=== PATIENT | male | born 1945 | race Caucasian/White ===

== ENCOUNTER 2017-01-29 16:00 | Emergency (ER) | payer OTHER ==
[~2017-01-29] VITALS: Ht 180.3 cm; Wt 113.4 kg
[~2017-01-29 16:00] MED LIST: ACYC400T PO; ATOR1TAB PO; CARV12.544 PO; CLOP75TA41 PO; ENTRESTO PO; FEXO-42 PO; GABA300C8 PO; GUAI600T23 PO; INSUINJ IJ; INSUINJ37 SUBCUT; OMEP20CA5 PO; POT20T PO; PREG150C PO; TAMS0.4C36 PO
[2017-01-29 17:16] LABS: Basophils # (auto) 0 uL; Basophils % (auto) 0.4 % (0.0-2.0); Eosinophils # (auto) 0.2 uL; Eosinophils % (auto) 2.7 % (0.0-7.0); Hematocrit 46.4 % (41.0-53.0); Lymphocytes % (auto) 28.4 % (10.0-50.0); Mean Corpuscular Hemoglobin 30.9 pg (28.0-32.0); Mean Corpuscular Hgb Conc. 32.3 g/dL (32.0-36.0); Mean Corpuscular Volume 95.5 fL (80.0-100.0); Mean Platelet Volume 9.6 fL (7.4-10.4); Monocytes # (auto) 0.4 uL; Monocytes % (auto) 5.2 % (0.0-12.0); Neutrophils # (auto) 4.6 uL; Neutrophils % (auto) 63.3 % (37.0-80.0); Platelet Count (auto) 179 10^3/uL (140-450); Red Cell Distribution Width 14.5 % (11.6-16.0); White Blood Cell 7.2 10^3/uL (4.4-10.8)
[2017-01-29 17:40] LABS: Albumin 3.2 g/dL (3.4-5.0); BUN/Creatinine Ratio 14.8; Bilirubin, Total 0.6 mg/dL (0.2-1.0); Calcium 8.6 mg/dL (8.5-10.1); Potassium 4.3 mmol/L (3.5-5.1); Total Protein 6.9 g/dL (6.4-8.2)
[2017-01-29 18:30] VITALS: BP 119/60
== END 2017-01-29 18:56 | disposition home or self-care (01) ==
LOC: ER 16:00 → EDBD 16:00 → ER 18:56
DX: R07.89 Other chest pain (principal); E66.01 Morbid (severe) obesity due to excess calories; Z68.34 Body mass index [BMI] 34.0-34.9, adult; I11.0 Hypertensive heart disease with heart failure; I50.9 Heart failure, unspecified; J44.9 Chronic obstructive pulmonary disease, unspecified; E11.9 Type 2 diabetes mellitus without complications; E78.5 Hyperlipidemia, unspecified; I25.2 Old myocardial infarction; Z86.73 Personal history of transient ischemic attack (TIA), and cerebral infarction without residual deficits; Z87.891 Personal history of nicotine dependence
CPT/HCPCS: 36415; 71020; 80053; 83735; 84484; 85025; 93005

== ENCOUNTER 2019-08-03 23:04 | Emergency (ER) | payer OTHER ==
[~2019-08-03] VITALS: Ht 188 cm; Wt 99.8 kg
[~2019-08-03 23:04] MED LIST changes: +ACYC-43 PO; -ACYC400T PO; +GABA300C10 PO; -GABA300C8 PO; -OMEP20CA5 PO; +OMEP20CA74 PO
[2019-08-03] MEDS ORDERED: ASPirin 81 mg TAB PO ONE (23:30)
[2019-08-03 23:41] LABS: Basophils # (auto) 0.1 uL; Basophils % (auto) 0.7 % (0.0-2.0); Eosinophils # (auto) 0.3 uL; Eosinophils % (auto) 3.5 % (0.0-7.0); Hematocrit 40.2 % (41.0-53.0); Hemoglobin 13.8 g/dL (13.5-17.5); Lymphocytes # (auto) 1.5 uL; Lymphocytes % (auto) 15.1 % (10.0-50.0); Mean Corpuscular Hemoglobin 32.6 pg (28.0-32.0); Mean Corpuscular Hgb Conc. 34.3 g/dL (32.0-36.0); Mean Corpuscular Volume 95.1 fL (80.0-100.0); Monocytes # (auto) 0.6 uL; Monocytes % (auto) 5.8 % (0.0-12.0); Neutrophils # (auto) 7.4 uL; Neutrophils % (auto) 74.9 % (37.0-80.0); Platelet Count (auto) 129 10^3/uL (140-450); Red Blood Cells 4.23 10^6/uL (4.5-5.90); Red Cell Distribution Width 14.4 % (11.8-14.3); White Blood Cell 9.9 10^3/uL (4.4-10.8)
[2019-08-03 23:56] LABS: INR 1.38 (0.9-1.15); Partial Thromboplastin Time 40.2 sec (23.64-32.05)
[2019-08-04 00:04] LABS: Albumin 3.1 g/dL (3.4-5.0); BUN/Creatinine Ratio 16.9; Calcium 8.3 mg/dL (8.5-10.1); Potassium 3.8 mmol/L (3.5-5.1)
[2019-08-04 00:09] LABS: Bilirubin, Total 0.6 mg/dL (0.2-1.0); Total Protein 6.6 g/dL (6.4-8.2)
[2019-08-04] MEDS ORDERED: ACETAMINOPHEN 325 MG TAB PO ONE (01:30)
[2019-08-04] MEDS ORDERED: ALUM & MAG HYDROX-SIMETH LIQ(MAALOX) 30 ML PO ONE (01:45)
[2019-08-04] MEDS ORDERED: IOHEXOL 350 MG/ML 100ML IJ ONE ×2 (02:02→03:29)
[2019-08-04 05:56] VITALS: BP 124/56
== END 2019-08-04 06:10 | disposition short-term general hospital (02) ==
LOC: EDBD 23:04 → ER 23:06
DX: R07.9 Chest pain, unspecified (principal); J39.8 Other specified diseases of upper respiratory tract; R79.1 Abnormal coagulation profile; I25.2 Old myocardial infarction; I11.0 Hypertensive heart disease with heart failure; I50.9 Heart failure, unspecified; J44.9 Chronic obstructive pulmonary disease, unspecified; E78.5 Hyperlipidemia, unspecified; Z95.0 Presence of cardiac pacemaker; Z87.891 Personal history of nicotine dependence; Z86.73 Personal history of transient ischemic attack (TIA), and cerebral infarction without residual deficits; Z88.0 Allergy status to penicillin; Z88.6 Allergy status to analgesic agent; Z91.040 Latex allergy status; Z88.8 Allergy status to other drugs, medicaments and biological substances; Z79.899 Other long term (current) drug therapy; Z79.4 Long term (current) use of insulin
CPT/HCPCS: 36415; 71045; 71275; 80053; 82962; 83880; 84484; 85025; 85379; 85610; 85730; 86677; 94761; 99285; Q9967

== ENCOUNTER 2019-10-21 15:02 | Emergency (ER) | payer OTHER ==
[~2019-10-21] VITALS: Ht 182.9 cm; Wt 106.6 kg
[2019-10-21] MEDS ORDERED: FUROSEMIDE 40 MG/4 ML VIAL IV ONE (15:15)
[2019-10-21 15:59] LABS: Basophils # (auto) 0.1 uL; Basophils % (auto) 1.2 % (0.0-2.0); Eosinophils # (auto) 0.3 uL; Eosinophils % (auto) 3.3 % (0.0-7.0); Hematocrit 39.8 % (41.0-53.0); Hemoglobin 13.6 g/dL (13.5-17.5); Lymphocytes # (auto) 1.9 uL; Mean Corpuscular Hemoglobin 32.7 pg (28.0-32.0); Mean Corpuscular Hgb Conc. 34.2 g/dL (32.0-36.0); Mean Corpuscular Volume 95.7 fL (80.0-100.0); Monocytes # (auto) 0.5 uL; Monocytes % (auto) 6.2 % (0.0-12.0); Neutrophils # (auto) 5.1 uL; Neutrophils % (auto) 65.3 % (37.0-80.0); Nucleated Red Blood Cells % 0.2 %; Platelet Count (auto) 130 10^3/uL (140-450); Red Blood Cells 4.16 10^6/uL (4.5-5.90); Red Cell Distribution Width 15.2 % (11.8-14.3); White Blood Cell 7.7 10^3/uL (4.4-10.8)
[2019-10-21 16:17] LABS: Albumin 3.3 g/dL (3.4-5.0); BUN/Creatinine Ratio 17.1; Calcium 9.1 mg/dL (8.5-10.1)
[2019-10-21 16:23] LABS: Bilirubin, Total 0.6 mg/dL (0.2-1.0)
[2019-10-21] MEDS ORDERED: ONDANSETRON HCL 4 MG/2 ML VIAL IV ONE (19:00)
[2019-10-21] MEDS ORDERED: MORPHINE SULF INJ 2 MG/ML SYRINGE 1ML IV ONE (19:00)
[2019-10-21] MEDS ORDERED: HYDROmorphone HCL 2 MG/ML VL IV ONE (19:15)
[2019-10-21 22:35] VITALS: BP 126/51
== END 2019-10-21 23:09 | disposition home or self-care (01) ==
LOC: EDBD 15:02 → ER 15:05
DX: I11.0 Hypertensive heart disease with heart failure (principal); I50.33 Acute on chronic diastolic (congestive) heart failure; R79.89 Other specified abnormal findings of blood chemistry; J44.9 Chronic obstructive pulmonary disease, unspecified; E11.9 Type 2 diabetes mellitus without complications; E78.5 Hyperlipidemia, unspecified; I25.2 Old myocardial infarction; F17.210 Nicotine dependence, cigarettes, uncomplicated
CPT/HCPCS: 36415; 71045; 80053; 82962; 83605; 83880; 84484; 85025; 87040; 93005; 96374; 96375; 99285; J1170; J1940; J2405

== ENCOUNTER 2019-12-09 12:23 | Inpatient (IN) | payer OTHER ==
[~2019-12-09] VITALS: Ht 182.9 cm; Wt 110.7 kg
[2019-12-09 12:59] LABS: Urine WBC None Seen /hpf (0 - 3)
[2019-12-09 13:10] LABS: Basophils # (auto) 0.1 uL; Basophils % (auto) 1.2 % (0.0-2.0); Eosinophils # (auto) 0.3 uL; Hematocrit 39.2 % (41.0-53.0); Hemoglobin 13.3 g/dL (13.5-17.5); Lymphocytes # (auto) 1.8 uL; Mean Corpuscular Hemoglobin 32.4 pg (28.0-32.0); Mean Corpuscular Hgb Conc. 33.9 g/dL (32.0-36.0); Mean Corpuscular Volume 95.4 fL (80.0-100.0); Monocytes # (auto) 0.3 uL; Monocytes % (auto) 4.8 % (0.0-12.0); Neutrophils # (auto) 4.5 uL; Platelet Count (auto) 147 10^3/uL (140-450); Red Blood Cells 4.11 10^6/uL (4.5-5.90); Red Cell Distribution Width 14.9 % (11.8-14.3)
[2019-12-09 13:12] LABS: Urine Bacteria NONE SEEN /hpf (None Seen); Urine Blood TRACE /uL (Negative); Urine Specific Gravity 1.012 (1.001-1.035)
[2019-12-09 13:32] LABS: Albumin 3.3 g/dL (3.4-5.0); Calcium 8.7 mg/dL (8.5-10.1); Potassium 4.3 mmol/L (3.5-5.1)
[2019-12-09 13:36] LABS: BUN/Creatinine Ratio 14.3; Bilirubin, Total 0.8 mg/dL (0.2-1.0); Total Protein 7.6 g/dL (6.4-8.2)
[2019-12-09] MEDS ORDERED: ONDANSETRON HCL 4 MG/2 ML VIAL IV ONE (15:45)
[2019-12-09] MEDS ORDERED: MEPERIDINE HCL (25 MG/ML) 1ML VIAL IV ONE ×2 (15:45→20:30)
[2019-12-09] MEDS ORDERED: SODIUM CHLORIDE 0.9% 500 ML IVB ONE (15:45)
[2019-12-09] MEDS ORDERED: PROMETHAZINE HCL 25 MG/ML 1ML IV ONE (20:30)
[2019-12-09] MEDS ORDERED: levoFLOXacin 500MG 100 ML IV ONE (22:30)
[2019-12-09] MEDS ORDERED: ASPirin-EC 81 mg tab PO ONE (22:30)
[2019-12-10] VITALS (7 sets, daily range): BP systolic 133–151; BP diastolic 62–86
[2019-12-10] MEDS ORDERED: ONDANSETRON HCL 4 MG/2 ML VIAL IV PRN
[2019-12-10] MEDS ORDERED: NITROGLYCERIN 0.4 MG SL TAB SL PRN ×2
[2019-12-10] MEDS ORDERED: DEXTROSE (50%) 50ML SYRG IV PRN (00:30)
[2019-12-10] MEDS: InsuLIN REG 1unit/0.01ml Soln (100units/ml) SC SCH ×4 (06:42→21:55)
[2019-12-10] MEDS: ACCU-CHEK COMFORT CURVE STRIP VI SCH ×4 (06:42→21:46)
[2019-12-10 09:08] LABS: Basophils # (auto) 0 10 ^3/uL (0-0.2); Basophils % (auto) 0.7 % (0.0-2.0); Eosinophils # (auto) 0.3 10 ^3/uL (0-0.8); Eosinophils % (auto) 4.7 % (0.0-7.0); Hematocrit 39.1 % (41.0-53.0); Hemoglobin 13.5 g/dL (13.5-17.5); Lymphocytes # (auto) 1.6 10 ^3/uL (0.4-5.4); Lymphocytes % (auto) 22.8 % (10.0-50.0); Mean Corpuscular Hemoglobin 32.6 pg (28.0-32.0); Mean Corpuscular Hgb Conc. 34.5 g/dL (32.0-36.0); Mean Corpuscular Volume 94.5 fL (80.0-100.0); Monocytes # (auto) 0.5 10 ^3/uL (0-1.3); Monocytes % (auto) 7.3 % (0.0-12.0); Neutrophils # (auto) 4.4 10 ^3/uL (1.6-8.6); Neutrophils % (auto) 64.5 % (37.0-80.0); Platelet Count (auto) 132 10^3/uL (140-450); Red Blood Cells 4.14 10^6/uL (4.5-5.90); Red Cell Distribution Width 14.7 % (11.8-14.3); White Blood Cell 6.8 10^3/uL (4.4-10.8)
[2019-12-10 09:22] LABS: Calcium 8.9 mg/dL (8.5-10.1)
[2019-12-10 09:23] LABS: Cholesterol 88 mg/dL (< 200); HDL Cholesterol 35 mg/dL (40-59); LDL Cholesterol 43 mg/dL (< 100); Triglycerides 114 mg/dL (< 150)
[2019-12-10 09:24] LABS: BUN/Creatinine Ratio 9.5
[2019-12-10] MEDS: KETOROLAC TROMETH 15 mg/ml 1ML VL IV PRN ×3 (09:43→18:28)
[2019-12-10] MEDS ORDERED: CARVEDILOL 12.5 MG TAB PO SCH (10:00)
[2019-12-10] MEDS: OMEPRAZOLE 20MG/10ML ORAL SUSP PO SCH (10:00)
[2019-12-10] MEDS: CLOPIDOGREL BISULFATE 75 MG TAB PO SCH (11:23)
[2019-12-10] MEDS: ENALAPRIL MALEATE 2.5 MG TAB PO SCH ×2 (11:23→21:46)
[2019-12-10] MEDS: DOCUSATE SOD 100 MG CAP PO SCH (11:23)
[2019-12-10] MEDS: ASPirin 81 mg TAB PO SCH (11:23)
[2019-12-10] MEDS: TAMSULOSIN HYDROCHLORIDE 0.4 MG CAP PO SCH (11:25)
[2019-12-10] MEDS: SACUBITRIL VALSARTAN PO SCH ×2 (11:25→21:45)
[2019-12-10] MEDS: levoFLOXacin 500MG 100 ML IV SCH (11:26)
[2019-12-10] MEDS ORDERED: NYSTATIN TOPICAL POWDER 15GM TOP ONE (14:15)
[2019-12-10] MEDS: CARVEDILOL 12.5 MG TAB PO SCH (18:28)
[2019-12-10] MEDS: ATORVASTATIN 20 MG TAB PO SCH (21:45)
[2019-12-10] MEDS ORDERED: ATORVASTATIN 20 MG TAB PO SCH (22:00)
[2019-12-10] MEDS ORDERED: NYSTATIN TOPICAL POWDER 15GM TOP SCH (22:00)
[2019-12-10] MEDS: ACETAMINOPHEN 325 MG TAB PO PRN (22:19)
[2019-12-11] VITALS (7 sets, daily range): BP systolic 113–137; BP diastolic 58–91
[2019-12-11] MEDS: KETOROLAC TROMETH 15 mg/ml 1ML VL IV PRN ×2 (02:35→21:28)
[2019-12-11] MEDS: ACCU-CHEK COMFORT CURVE STRIP VI SCH ×4 (06:19→21:25)
[2019-12-11] MEDS: InsuLIN REG 1unit/0.01ml Soln (100units/ml) SC SCH ×4 (06:36→21:57)
[2019-12-11] MEDS: CARVEDILOL 12.5 MG TAB PO SCH ×2 (07:58→17:52)
[2019-12-11 08:45] LABS: INR 1.52 (0.9-1.15); Partial Thromboplastin Time 33.7 sec (23.64-32.05)
[2019-12-11] MEDS: CLOPIDOGREL BISULFATE 75 MG TAB PO SCH (09:21)
[2019-12-11] MEDS: ENALAPRIL MALEATE 2.5 MG TAB PO SCH ×2 (09:22→21:25)
[2019-12-11] MEDS: OMEPRAZOLE 20MG/10ML ORAL SUSP PO SCH (10:00)
[2019-12-11] MEDS: ASPirin 81 mg TAB PO SCH (10:00)
[2019-12-11] MEDS: ENOXAPARIN SOD 40 MG/0.4 ML SYRINGE SC SCH (10:00)
[2019-12-11] MEDS: SACUBITRIL VALSARTAN PO SCH ×2 (10:34→21:25)
[2019-12-11] MEDS: TAMSULOSIN HYDROCHLORIDE 0.4 MG CAP PO SCH (10:34)
[2019-12-11] MEDS: levoFLOXacin 500MG 100 ML IV SCH (10:34)
[2019-12-11] MEDS: DOCUSATE SOD 100 MG CAP PO SCH (10:34)
[2019-12-11] MEDS ORDERED: INSULIN LANTUS (GLARGINE) 1 /0.01ml (100units/ml) SC ONE (12:30)
[2019-12-11] MEDS: ACETAMINOPHEN 325 MG TAB PO PRN (17:53)
[2019-12-11] MEDS: ATORVASTATIN 20 MG TAB PO SCH (21:25)
[2019-12-11] MEDS: NYSTATIN TOPICAL CREAM 15GM TOP SCH (21:26)
[2019-12-11] MEDS: INSULIN LANTUS (GLARGINE) 1 /0.01ml (100units/ml) SC SCH (21:57)
[2019-12-12] MEDS: ACETAMINOPHEN 325 MG TAB PO PRN ×2 (00:06→21:12)
[2019-12-12 05:00] VITALS: BP 116/48
[2019-12-12] MEDS: ACCU-CHEK COMFORT CURVE STRIP VI SCH ×4 (06:19→22:10)
[2019-12-12] MEDS: InsuLIN REG 1unit/0.01ml Soln (100units/ml) SC SCH ×4 (06:20→22:00)
[2019-12-12] MEDS: KETOROLAC TROMETH 15 mg/ml 1ML VL IV PRN ×2 (06:43→20:27)
[2019-12-12 09:00] VITALS: BP 156/66
[2019-12-12] MEDS: ASPirin 81 mg TAB PO SCH (09:05)
[2019-12-12] MEDS: DOCUSATE SOD 100 MG CAP PO SCH (09:05)
[2019-12-12] MEDS: CARVEDILOL 12.5 MG TAB PO SCH (09:05)
[2019-12-12] MEDS: TAMSULOSIN HYDROCHLORIDE 0.4 MG CAP PO SCH (09:06)
[2019-12-12] MEDS: SACUBITRIL VALSARTAN PO SCH ×2 (09:06→22:00)
[2019-12-12] MEDS: OMEPRAZOLE 20MG/10ML ORAL SUSP PO SCH (09:06)
[2019-12-12] MEDS: ENALAPRIL MALEATE 2.5 MG TAB PO SCH ×2 (09:07→22:00)
[2019-12-12] MEDS: CLOPIDOGREL BISULFATE 75 MG TAB PO SCH (09:07)
[2019-12-12] MEDS: ENOXAPARIN SOD 40 MG/0.4 ML SYRINGE SC SCH (09:09)
[2019-12-12] MEDS ORDERED: INSULIN LANTUS (GLARGINE) 1 /0.01ml (100units/ml) SC SCH (10:00)
[2019-12-12 10:20] LABS: Calcium 8.7 mg/dL (8.5-10.1); Potassium 3.8 mmol/L (3.5-5.1)
[2019-12-12] MEDS: NYSTATIN TOPICAL CREAM 15GM TOP SCH ×2 (12:07→22:18)
[2019-12-12 13:00] VITALS: BP 147/67
[2019-12-12] MEDS ORDERED: IOHEXOL 350 MG/ML 100ML IJ ONE ×2 (13:12→13:57)
[2019-12-12] MEDS ORDERED: LIDOCAINE 2%HCL (LOCAL ANESTH.) INJ 20ML MDV ONE ×2 (13:12→13:54)
[2019-12-12] MEDS ORDERED: fentaNYL CITRATE 100 MCG/2 ML VL ONE (13:25)
[2019-12-12] MEDS ORDERED: ANGIOMAX 250 MG VIAL IV ONE (13:25)
[2019-12-12] MEDS ORDERED: MIDAZOLAM HCL 1MG/1ML-2 ML VIAL ONE (13:26)
[2019-12-12] MEDS ORDERED: SODIUM CHL 0.9% 50 ML ONE (13:26)
[2019-12-12] MEDS ORDERED: CLOPIDOGREL 300 MG TAB ONE (15:31)
[2019-12-12] MEDS ORDERED: ASPirin 81 mg TAB ONE (15:31)
[2019-12-12] MEDS ORDERED: SODIUM CHLORIDE 0.9% 500 ML IV ONE (16:45)
[2019-12-12 17:00] VITALS: BP 118/61
[2019-12-12] MEDS: INSULIN LANTUS (GLARGINE) 1 /0.01ml (100units/ml) SC SCH (22:00)
[2019-12-12] MEDS: MUPIROCIN 2% OINT 15gm or 22gm EACHNOSTRI SCH (22:18)
[2019-12-12] MEDS: ATORVASTATIN 20 MG TAB PO SCH (22:18)
[2019-12-12] MEDS ORDERED: ALBUMIN 5% 250 ML IV ONE (22:45)
[2019-12-12 23:08] LABS: Hematocrit 37.4 % (41.0-53.0); Hemoglobin 12.6 g/dL (13.5-17.5)
[2019-12-12 23:11] VITALS: BP 97/54
[2019-12-13] VITALS (7 sets, daily range): BP systolic 97–124; BP diastolic 53–62
[2019-12-13] MEDS: KETOROLAC TROMETH 15 mg/ml 1ML VL IV PRN (01:58)
[2019-12-13] MEDS: ACETAMINOPHEN 325 MG TAB PO PRN (02:42)
[2019-12-13 05:44] LABS: Potassium 3.7 mmol/L (3.5-5.1)
[2019-12-13 05:46] LABS: BUN/Creatinine Ratio 29.8; Calcium 8.5 mg/dL (8.5-10.1)
[2019-12-13] MEDS: ACCU-CHEK COMFORT CURVE STRIP VI SCH ×4 (06:32→21:58)
[2019-12-13] MEDS: InsuLIN REG 1unit/0.01ml Soln (100units/ml) SC SCH ×4 (06:33→21:57)
[2019-12-13] MEDS: CARVEDILOL 12.5 MG TAB PO SCH ×2 (09:40→17:25)
[2019-12-13] MEDS ORDERED: GABAPENTIN 300 MG CAP PO ONE (09:45)
[2019-12-13] MEDS: ENALAPRIL MALEATE 2.5 MG TAB PO SCH ×2 (10:00→21:57)
[2019-12-13] MEDS: SACUBITRIL VALSARTAN PO SCH ×2 (10:00→21:57)
[2019-12-13] MEDS: CLOPIDOGREL BISULFATE 75 MG TAB PO SCH (10:36)
[2019-12-13] MEDS: ASPirin 81 mg TAB PO SCH (10:36)
[2019-12-13] MEDS: MUPIROCIN 2% OINT 15gm or 22gm EACHNOSTRI SCH ×2 (10:36→21:57)
[2019-12-13] MEDS: NYSTATIN TOPICAL CREAM 15GM TOP SCH ×2 (10:36→21:58)
[2019-12-13] MEDS: TAMSULOSIN HYDROCHLORIDE 0.4 MG CAP PO SCH (10:36)
[2019-12-13] MEDS: PANTOPRAZOLE 40 MG TAB PO SCH ×2 (10:36→10:56)
[2019-12-13] MEDS: traMADol HCL 50 MG TAB PO PRN ×2 (10:37→18:09)
[2019-12-13] MEDS: DOCUSATE SOD 100 MG CAP PO SCH (10:51)
[2019-12-13] MEDS: GABAPENTIN 300 MG CAP PO SCH ×2 (14:45→21:57)
[2019-12-13] MEDS ORDERED: FUROSEMIDE 40 MG/4 ML VIAL IV ONE (17:45)
[2019-12-13] MEDS ORDERED: POTASSIUM EFFERVESENT TAB 25 MEQ PO ONE (17:45)
[2019-12-13] MEDS: ATORVASTATIN 20 MG TAB PO SCH (21:57)
[2019-12-13] MEDS: INSULIN LANTUS (GLARGINE) 1 /0.01ml (100units/ml) SC SCH (21:58)
[2019-12-14] MEDS: traMADol HCL 50 MG TAB PO PRN ×2 (02:12→11:13)
[2019-12-14 05:00] VITALS: BP 98/47
[2019-12-14 05:38] LABS: Basophils # (auto) 0.1 10 ^3/uL (0-0.2); Basophils % (auto) 0.8 % (0.0-2.0); Eosinophils # (auto) 0.4 10 ^3/uL (0-0.8); Hemoglobin 10.7 g/dL (13.5-17.5); Lymphocytes # (auto) 2.1 10 ^3/uL (0.4-5.4); Lymphocytes % (auto) 24.2 % (10.0-50.0); Mean Corpuscular Hemoglobin 32.9 pg (28.0-32.0); Mean Corpuscular Hgb Conc. 34.5 g/dL (32.0-36.0); Mean Corpuscular Volume 95.6 fL (80.0-100.0); Monocytes # (auto) 0.7 10 ^3/uL (0-1.3); Monocytes % (auto) 8.1 % (0.0-12.0); Neutrophils # (auto) 5.3 10 ^3/uL (1.6-8.6); Neutrophils % (auto) 61.9 % (37.0-80.0); Platelet Count (auto) 84 10^3/uL (140-450); Red Blood Cells 3.24 10^6/uL (4.5-5.90); Red Cell Distribution Width 14.7 % (11.8-14.3); White Blood Cell 8.6 10^3/uL (4.4-10.8)
[2019-12-14 06:03] LABS: BUN/Creatinine Ratio 34.1; Calcium 8.3 mg/dL (8.5-10.1); Potassium 3.9 mmol/L (3.5-5.1)
[2019-12-14] MEDS: InsuLIN REG 1unit/0.01ml Soln (100units/ml) SC SCH ×4 (06:23→22:16)
[2019-12-14] MEDS: ACCU-CHEK COMFORT CURVE STRIP VI SCH ×4 (06:23→22:16)
[2019-12-14] MEDS: GABAPENTIN 300 MG CAP PO SCH ×3 (06:23→22:15)
[2019-12-14] MEDS: CARVEDILOL 12.5 MG TAB PO SCH ×2 (08:00→18:00)
[2019-12-14 09:00] VITALS: BP 108/51
[2019-12-14] MEDS: ENALAPRIL MALEATE 2.5 MG TAB PO SCH (10:00)
[2019-12-14] MEDS: SACUBITRIL VALSARTAN PO SCH (10:00)
[2019-12-14] MEDS: ASPirin 81 mg TAB PO SCH (10:52)
[2019-12-14] MEDS: MUPIROCIN 2% OINT 15gm or 22gm EACHNOSTRI SCH ×2 (10:52→22:15)
[2019-12-14] MEDS: NYSTATIN TOPICAL CREAM 15GM TOP SCH ×2 (10:53→22:16)
[2019-12-14] MEDS: TAMSULOSIN HYDROCHLORIDE 0.4 MG CAP PO SCH (10:53)
[2019-12-14] MEDS: DOCUSATE SOD 100 MG CAP PO SCH (10:53)
[2019-12-14] MEDS: CLOPIDOGREL BISULFATE 75 MG TAB PO SCH (10:53)
[2019-12-14] MEDS: PANTOPRAZOLE 40 MG TAB PO SCH (10:54)
[2019-12-14 13:00] VITALS: BP 119/52
[2019-12-14 17:00] VITALS: BP 119/42
[2019-12-14] MEDS: HYDROmorphone HCL 2 MG/ML VL IV PRN (21:38)
[2019-12-14 21:55] VITALS: BP 119/48
[2019-12-14] MEDS: SACUBITRIL-VALSARTAN 24mg/26mg TAB PO SCH (22:00)
[2019-12-14] MEDS: ATORVASTATIN 20 MG TAB PO SCH (22:15)
[2019-12-14] MEDS: INSULIN LANTUS (GLARGINE) 1 /0.01ml (100units/ml) SC SCH (22:16)
[2019-12-14] MEDS: ACETAMINOPHEN 325 MG TAB PO PRN (22:17)
[2019-12-15] MEDS: HYDROmorphone HCL 2 MG/ML VL IV PRN ×3 (04:57→19:25)
[2019-12-15] MEDS: GABAPENTIN 300 MG CAP PO SCH ×3 (04:57→22:11)
[2019-12-15 05:07] VITALS: BP 127/61
[2019-12-15] MEDS: ACCU-CHEK COMFORT CURVE STRIP VI SCH ×4 (06:29→22:11)
[2019-12-15] MEDS: INSULIN LANTUS (GLARGINE) 1 /0.01ml (100units/ml) SC SCH ×2 (06:38→22:11)
[2019-12-15] MEDS: InsuLIN REG 1unit/0.01ml Soln (100units/ml) SC SCH ×4 (06:38→22:12)
[2019-12-15 07:23] LABS: Basophils # (auto) 0.1 10 ^3/uL (0-0.2); Basophils % (auto) 0.9 % (0.0-2.0); Eosinophils # (auto) 0.5 10 ^3/uL (0-0.8); Eosinophils % (auto) 5.9 % (0.0-7.0); Hematocrit 29.9 % (41.0-53.0); Hemoglobin 10.4 g/dL (13.5-17.5); Lymphocytes % (auto) 26.3 % (10.0-50.0); Mean Corpuscular Hemoglobin 33.1 pg (28.0-32.0); Mean Corpuscular Hgb Conc. 34.7 g/dL (32.0-36.0); Mean Corpuscular Volume 95.3 fL (80.0-100.0); Monocytes # (auto) 0.5 10 ^3/uL (0-1.3); Monocytes % (auto) 6.6 % (0.0-12.0); Neutrophils # (auto) 4.7 10 ^3/uL (1.6-8.6); Neutrophils % (auto) 60.3 % (37.0-80.0); Nucleated Red Blood Cells % 0.1 %; Platelet Count (auto) 85 10^3/uL (140-450); Red Blood Cells 3.14 10^6/uL (4.5-5.90); Red Cell Distribution Width 14.6 % (11.8-14.3); White Blood Cell 7.7 10^3/uL (4.4-10.8)
[2019-12-15] MEDS: CARVEDILOL 12.5 MG TAB PO SCH ×2 (08:30→17:40)
[2019-12-15 09:00] VITALS: BP 106/69
[2019-12-15] MEDS: SACUBITRIL-VALSARTAN 24mg/26mg TAB PO SCH ×2 (10:00→21:38)
[2019-12-15] MEDS: TAMSULOSIN HYDROCHLORIDE 0.4 MG CAP PO SCH (10:21)
[2019-12-15] MEDS: NYSTATIN TOPICAL CREAM 15GM TOP SCH ×2 (10:21→22:11)
[2019-12-15] MEDS: ASPirin 81 mg TAB PO SCH (10:21)
[2019-12-15] MEDS: MUPIROCIN 2% OINT 15gm or 22gm EACHNOSTRI SCH ×2 (10:21→22:11)
[2019-12-15] MEDS: DOCUSATE SOD 100 MG CAP PO SCH (10:21)
[2019-12-15] MEDS: CLOPIDOGREL BISULFATE 75 MG TAB PO SCH (10:21)
[2019-12-15] MEDS: PANTOPRAZOLE 40 MG TAB PO SCH (10:21)
[2019-12-15 13:00] VITALS: BP 122/59
[2019-12-15 17:00] VITALS: BP 127/61
[2019-12-15] MEDS: ACETAMINOPHEN 325 MG TAB PO PRN (17:32)
[2019-12-15 22:00] VITALS: BP 124/64
[2019-12-15] MEDS: ATORVASTATIN 20 MG TAB PO SCH (22:11)
[2019-12-16] MEDS: ACETAMINOPHEN 325 MG TAB PO PRN ×2 (00:52→08:41)
[2019-12-16] MEDS: HYDROmorphone HCL 2 MG/ML VL IV PRN ×5 (01:24→21:18)
[2019-12-16 05:43] VITALS: BP 118/59
[2019-12-16] MEDS: GABAPENTIN 300 MG CAP PO SCH ×2 (06:35→14:28)
[2019-12-16] MEDS: InsuLIN REG 1unit/0.01ml Soln (100units/ml) SC SCH ×3 (06:35→17:00)
[2019-12-16] MEDS: ACCU-CHEK COMFORT CURVE STRIP VI SCH ×3 (06:35→17:11)
[2019-12-16] MEDS: INSULIN LANTUS (GLARGINE) 1 /0.01ml (100units/ml) SC SCH (06:35)
[2019-12-16] MEDS: CARVEDILOL 12.5 MG TAB PO SCH ×2 (08:00→18:06)
[2019-12-16 09:00] VITALS: BP 135/69
[2019-12-16] MEDS: TAMSULOSIN HYDROCHLORIDE 0.4 MG CAP PO SCH (09:29)
[2019-12-16] MEDS: CLOPIDOGREL BISULFATE 75 MG TAB PO SCH (09:30)
[2019-12-16] MEDS: DOCUSATE SOD 100 MG CAP PO SCH (09:30)
[2019-12-16] MEDS: ASPirin 81 mg TAB PO SCH (09:30)
[2019-12-16] MEDS: SACUBITRIL-VALSARTAN 24mg/26mg TAB PO SCH (09:30)
[2019-12-16] MEDS: PANTOPRAZOLE 40 MG TAB PO SCH (09:30)
[2019-12-16] MEDS: NYSTATIN TOPICAL CREAM 15GM TOP SCH (09:31)
[2019-12-16] MEDS: MUPIROCIN 2% OINT 15gm or 22gm EACHNOSTRI SCH (09:31)
[2019-12-16 13:00] VITALS: BP 116/54
[2019-12-16 17:00] VITALS: BP 119/64
[2019-12-16 22:00] VITALS: BP 130/75
== END 2019-12-16 22:17 | disposition short-term general hospital (02) | DRG 246 ==
LOC: EDBD 12:23 → ER 12:31 → TELE 12:32 → TELE-WESTW 12-10 01:35 → TELE 12-10 01:35 → TELE-WESTW 12-10 01:40
PROVIDERS: ADMIT Hospitalist; ATTEND Internal Medicine
PROC: 027034Z Dilation of Coronary Artery, One Artery with Drug-eluting Intraluminal Device, Percutaneous Approach (ICD-10-PCS; principal; 2019-12-12)
PROC: 4A023N7 Measurement of Cardiac Sampling and Pressure, Left Heart, Percutaneous Approach (ICD-10-PCS; 2019-12-12)
PROC: B2111ZZ Fluoroscopy of Multiple Coronary Arteries using Low Osmolar Contrast (ICD-10-PCS; 2019-12-12)
PROC: B41J1ZZ Fluoroscopy of Other Lower Arteries using Low Osmolar Contrast (ICD-10-PCS; 2019-12-12)
PROC: B41G1ZZ Fluoroscopy of Left Lower Extremity Arteries using Low Osmolar Contrast (ICD-10-PCS; 2019-12-12)
PROC: B41F1ZZ Fluoroscopy of Right Lower Extremity Arteries using Low Osmolar Contrast (ICD-10-PCS; 2019-12-12)
DX: I21.4 Non-ST elevation (NSTEMI) myocardial infarction (principal); I50.23 Acute on chronic systolic (congestive) heart failure; I50.22 Chronic systolic (congestive) heart failure; C90.00 Multiple myeloma not having achieved remission; I42.0 Dilated cardiomyopathy; I50.20 Unspecified systolic (congestive) heart failure; I24.9 Acute ischemic heart disease, unspecified; R10.9 Unspecified abdominal pain; N41.1 Chronic prostatitis; D64.9 Anemia, unspecified; J44.9 Chronic obstructive pulmonary disease, unspecified; I11.0 Hypertensive heart disease with heart failure; H54.61 Unqualified visual loss, right eye, normal vision left eye; E11.319 Type 2 diabetes mellitus with unspecified diabetic retinopathy without macular edema; E66.01 Morbid (severe) obesity due to excess calories; B37.9 Candidiasis, unspecified; Z22.322 Carrier or suspected carrier of Methicillin resistant Staphylococcus aureus; Z95.810 Presence of automatic (implantable) cardiac defibrillator; E11.51 Type 2 diabetes mellitus with diabetic peripheral angiopathy without gangrene; G62.9 Polyneuropathy, unspecified; I25.5 Ischemic cardiomyopathy; M16.12 Unilateral primary osteoarthritis, left hip; S30.1XXA Contusion of abdominal wall, initial encounter; X58.XXXA Exposure to other specified factors, initial encounter; Y93.89 Activity, other specified; Y92.89 Other specified places as the place of occurrence of the external cause; Y99.8 Other external cause status
CPT/HCPCS: 75716; 92928; 93458; 93460; 96361; 96365; 96375; 99285; G0278; 36415; 36600; 71045; 73700; 74176; 76705; 80048; 80053; 80061; 81001; 82805; 82962; 83036; 83735; 83880; 84484; 85014; 85018; 85025; 85610; 85730; 87070; 87081; 93005; 93926; 97110; 97530; 99152; 99153; C1874; G0378; J1815; J1956; J2250; J2405